=== PATIENT | female | born 1975 | race Caucasian/White ===

== ENCOUNTER → 2017-10-13 | Outpatient (CLI) | payer OTHER ==
[~2017-10-13] MED LIST: ATIVAN0.5 MG PO; FISH OIL SUPER1 SGL PO; VITAMINS & MINE1 TAB PO
[2017-10-13 08:57] LABS: BASO % 0.9 % (0.0-1.0); EOS # 0.3 10*3/uL (0.0-0.4); EOS % 7.1 % (1.0-4.0); HEMATOCRIT 41.4 % (37.0-47.0); HEMOGLOBIN 14.7 g/dl (12.0-16.0); LYMPH # 1.5 10*3/uL (1.3-4.4); LYMPH % 32.4 % (27.0-41.0); MEAN CELL VOLUME 88.8 fl (81.0-99.0); MEAN CORPUSCULAR HGB 31.5 pg (27.0-31.0); MEAN CORPUSCULAR HGB CONC 35.5 g/dl (33.0-37.0); MEAN PLATELET VOLUME 9.9 fl (9.6-12.3); MONO # 0.3 10*3/uL (0.1-1.0); MONO % 7.3 % (3.0-9.0); NEUT # 2.4 10*3/uL (2.3-7.9); NEUT % 52.1 % (47.0-73.0); PLATELET COUNT AUTOMATED 245 10*3/uL (130-400); RED BLOOD COUNT 4.66 10*6/uL (4.10-5.10); RED CELL DISTRI WIDTH 12.1 % (0-14.5); WHITE BLOOD COUNT 4.6 10*3/uL (4.8-10.8)
[2017-10-13 09:05] LABS: ALBUMIN 3.8 gm/dl (3.1-4.5); BILIRUBIN, DIRECT 0.1 mg/dL (0.0-0.2); BUN 16 mg/dl (7-24); CHLORIDE 103 mmol/L (98-107); CHOLESTEROL 158 mg/dL (<200); CREATININE 0.84 mg/dL (0.55-1.02); HDL CHOLESTEROL 76 mg/dl (40-60); LDL CHOLESTEROL 73 mg/dL (9-159); POTASSIUM 3.8 mmol/L (3.5-5.1); SGOT/AST 23 IU/L (3-35); SGPT/ALT 26 U/L (12-78); SODIUM 136 mmol/L (136-145); THYROXINE (T4) TOTAL 7.3 ug/dl (4.8-13.9); TOTAL PROTEIN 7.7 gm/dL (6.4-8.2); TRIGLYCERIDES 46 mg/dl (<150); VLDL CHOLESTEROL 9 mg/dL (6-40)
[2017-10-13 09:11] LABS: ALKALINE PHOSPHATASE 54 U/L (45-117)
== END | disposition home or self-care (01) ==
LOC: LAB 08:00
PROVIDERS: Family Medicine
DX: R53.83 Other fatigue (principal); R63.5 Abnormal weight gain; R79.89 Other specified abnormal findings of blood chemistry

== ENCOUNTER → 2019-11-03 | Outpatient (CLI) | payer OTHER | END | disposition home or self-care (01) | LOC: RAD 09:52 | DX: M25.461 Effusion, right knee (principal); M25.561 Pain in right knee ==